=== PATIENT | male | born 1950 | race Caucasian/White ===

== ENCOUNTER → 2017-12-16 | Outpatient (CLI) | payer MEDICARE, OTHER ==
[~2017-12-16] MED LIST: BUTALB-APAP-CA1 EACH PO; NORCO 10-325 T1 EACH PO; PERCOCET 10-321 EACH PO; TRAZODONE HCL100 MG PO
== END ==
LOC: M.ULTRA 09:04
DX: N43.2 Other hydrocele (principal); N50.89 Other specified disorders of the male genital organs

== ENCOUNTER → 2018-05-28 | Outpatient (CLI) | payer MEDICARE, OTHER | LOC: M.LAB 05-26 10:00 | PROVIDERS: General Practice | DX: I70.0 Atherosclerosis of aorta (principal); I70.8 Atherosclerosis of other arteries; K57.90 Diverticulosis of intestine, part unspecified, without perforation or abscess without bleeding; M43.8X6 Other specified deforming dorsopathies, lumbar region ==

== ENCOUNTER → 2018-06-23 | Outpatient (CLI) | payer MEDICARE, OTHER | LOC: M.NUC 06-21 13:03 | DX: K31.84 Gastroparesis (principal); R10.13 Epigastric pain; R63.4 Abnormal weight loss ==

== ENCOUNTER → 2018-06-24 | Outpatient (CLI) | payer MEDICARE, OTHER | LOC: M.CT 08:51 | DX: I70.0 Atherosclerosis of aorta (principal); I77.819 Aortic ectasia, unspecified site; K55.059 Acute (reversible) ischemia of intestine, part and extent unspecified; R93.3 Abnormal findings on diagnostic imaging of other parts of digestive tract; R19.04 Left lower quadrant abdominal swelling, mass and lump; R10.13 Epigastric pain; R63.4 Abnormal weight loss; G43.909 Migraine, unspecified, not intractable, without status migrainosus ==

== ENCOUNTER → 2020-07-06 | Outpatient (CLI) | payer MEDICARE, OTHER | LOC: M.RAD 07:54 | PROVIDERS: ATTEND Family Medicine | DX: M47.816 Spondylosis without myelopathy or radiculopathy, lumbar region (principal); M41.56 Other secondary scoliosis, lumbar region; M25.551 Pain in right hip; M54.5 Low back pain ==

== ENCOUNTER → 2020-12-06 | Outpatient (CLI) | payer MEDICARE, OTHER | LOC: M.RAD 11:19 | PROVIDERS: ATTEND Orthopaedic Surgery | DX: M19.011 Primary osteoarthritis, right shoulder (principal) ==

== ENCOUNTER → 2021-01-04 | Outpatient (CLI) | payer MEDICARE, OTHER | LOC: M.RAD 12:05 → M.LAB 12:05 | PROVIDERS: ATTEND Orthopaedic Surgery | DX: M19.031 Primary osteoarthritis, right wrist (principal) ==

== ENCOUNTER → 2021-01-22 | Outpatient (CLI) | payer MEDICARE, OTHER ==
[~2021-01-22] MED LIST changes: +IMITREX100 MG PO; +SIMVASTATIN40 MG PO
[2021-01-22 08:38] LABS: ABSOLUTE EOSINOPHILS 0.1 thou/uL (0.0-0.7); ABSOLUTE LYMPHOCYTES 1.7 thou/uL (0.8-5.3); ABSOLUTE MONOCYTES 0.4 thou/uL (0.0-1.2); ABSOLUTE NEUTROPHILS 3.3 thou/uL (1.6-8.1); BASOPHILS 0.9 %; EOSINOPHILS 2.3 %; HEMATOCRIT 41.5 % (42.0-52.0); HEMOGLOBIN 13.7 gm/dL (14.0-18.0); LYMPHOCYTES 30.4 %; MCH 30.9 pg (26.0-34.0); MCV 93.5 fL (80.0-100.0); MONOCYTES 7.7 %; MPV 6.3 fl. (7.2-11.1); NUCLEATED RBCS 0 /100WBC; PLATELET COUNT* 273 thou/uL (150-400); POLYS 58.7 %; RBC 4.44 mil/uL (4.50-6.00); RDW-CV 13.8 % (10.5-14.5); WBC 5.6 thou/uL (4.0-11.0)
[2021-01-22 08:39] LABS: URINE BILIRUBIN NEGATIVE (Negative); URINE BLOOD NEGATIVE (Negative); URINE CLARITY CLEAR; URINE COLOR YELLOW; URINE GLUCOSE-RANDOM NEGATIVE (Negative); URINE KETONES TRACE (Negative); URINE LEUKOCYTES-REFLEX NEGATIVE (Negative); URINE NITRITE-REFLEX NEGATIVE (Negative); URINE PROTEIN NEGATIVE (Negative); URINE SPECIFIC GRAVITY 1.025 (1.005-1.030); URINE UROBILINOGEN 0.2 E.U./dl (0.2-1.0)
[2021-01-22 08:53] LABS: PROTIME 10.4 Seconds (9.20-11.50)
[2021-01-22 08:55] LABS: ALBUMIN 3.6 g/dL (3.4-5.0); CALCIUM 9.1 mg/dL (8.5-10.1); CREATININE 1.1 mg/dL (0.6-1.3); POTASSIUM 3.6 mmol/L (3.5-5.1); TOTAL BILIRUBIN 0.2 mg/dL (<0.1-1.0); TOTAL PROTEIN 7.1 g/dL (6.4-8.2)
--- NOTE | 2021-01-22 12:24 | EKG ---
[place] [address] ELECTROCARDIOGRAM REPORT Name: RAUDELDIANA ARANDA Juan Francisco Room: 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: : 1950 Requested By: Lambert Fishman Order Number: [id number] Jenna MD: Kip Bucio Measurements Intervals [place] Rate: 73 P: 76 [place]: 140 QRS: 79 QRSD: 88 T: 78 QT: 368 QTc: 406 Interpretive Statements Sinus rhythm ST elevation, consider early repolarization compared to ECG 12/04/2014 21:11:13 Early repolarization now present Electronically Signed On 01-22-2021 12:24:32 CDT by Kip Bucio [email or web address] <ELECTRONICALLY SIGNED> By: Kip Bucio MD, [facility] 01/22/21 1224 0855 0855 Kip Bucio MD, [facility] /EPI
== END ==
LOC: M.LAB 08:23
PROVIDERS: ATTEND Orthopaedic Surgery
DX: Z01.818 Encounter for other preprocedural examination (principal); M19.011 Primary osteoarthritis, right shoulder; I49.9 Cardiac arrhythmia, unspecified

== ENCOUNTER 2021-01-29 07:00 | Inpatient (IN) | payer MEDICARE, OTHER ==
[~2021-01-29] VITALS: Ht 177.8 cm; Wt 68.0 kg
--- NOTE | ~2021-01-29 | OP ---
[facility] [address] [place] [address] OPERATIVE REPORT Name: DIANA STARKS Room: [address] IN M.R.#: [id number] Admission: 01/29/21 Attend Phys: Evangelist Vale Discharge: Date of : 54 Report #: [id number] THIS REPORT FOR: cc: Jaren Banuelos Russell J. DO ~ Lambert Fishman II, DO DATE OF SERVICE: 01/29/2021 PREOPERATIVE DIAGNOSES: Right shoulder end-stage rotator cuff tear with osteoarthritis of glenohumeral joint. POSTOPERATIVE DIAGNOSES: Right shoulder end-stage rotator cuff tear with osteoarthritis of glenohumeral joint. PROCEDURE: Right reverse total shoulder arthroplasty. SURGEON: Lambert Fishman II, DO CONFIGURATION DEVELOPER: SHEY Danielle. ANESTHESIA: Per operative record. ESTIMATED BLOOD LOSS: 50 mL. ANTIBIOTICS: Per operative record. DRAINS: None. COMPLICATIONS: None. CONDITION OF THE PATIENT: Stable to recovery room. BRIEF HISTORY: The patient was seen in the preoperative area. Preoperative H and P was performed. Site was marked, questions were answered. Risks and benefits were discussed with the patient in detail about the surgery. The patient wished to proceed, assuming all risks. DESCRIPTION OF PROCEDURE: The patient was taken to the operative suite and placed supine on the operative table, given appropriate anesthesia. The patient was then placed in modified beach chair position. All bony prominences were well padded and the right shoulder was sterilely prepped and draped. Surgery began by an anterior deltopectoral incision. This was carried down to the subcutaneous tissues. The deltoid was retracted laterally with the cephalic vein. The subscapularis was then reflected off of the humerus and the head of the humerus was then dislocated anteriorly out of the incision. Intramedullary [facility] [address] [place] [address] OPERATIVE REPORT Name: DIANA STARKS Room: [address] IN [facility].#: [id number] Admission: 01/29/21 Attend Phys: Evangelist Vale Discharge: Date of : 54 Report #: [id number] guide was then utilized through the proximal aspect of the humerus, it was then reamed in sequential fashion up to appropriate size, which was left in place. The intramedullary cutting guide was then aligned utilizing the alignment georgina and pinned in appropriate position. This was then cut in appropriate fashion and the proximal head was removed. The alignment guide was then withdrawn and broached. This was then broached in sequential fashion up to appropriate size, which was left in place and the protective hubcap was then placed over the top. The humerus was once again reduced back into the socket and retracted out of the way to assess the glenoid. Excess labrum was removed from around the glenoid. The inferior portion was found, the appropriate alignment guide was then placed with the guide pin in the inferior central area in an appropriate fashion. This was then reamed to allow for punctate bleeding throughout the glenoid. The glenoid base plate was then attached with a central cancellous screw and tensioned and tied into place. The remaining screws through the glenoid baseplate were then drilled and measured and applied in the appropriate fashion. The appropriate eccentric glenosphere was then utilized and was malleted into position. Attention was then turned back to the humerus. This was trialed with appropriate spacer showing excellent fit and fill with full range of motion of the shoulder. This spacer was then selected along at the final implants and malleted into position on the back table. It was then inserted in a monoblock configuration in appropriate fashion and pounded into position. Shoulder once again reduced, taken through range of motion, showing excellent fit and fill and excellent stability of the shoulder through all range of motion without evidence of dislocation. Final irrigation was performed. The subscapularis was then reattached to the proximal humerus. The deltopectoral incision was then loosely closed with a 1 Vicryl in running fashion and skin was closed with 2-0 Vicryl and running Monocryl stitch. Dermabond, sterile dressing and UltraSling was applied. The patient was transported to recovery room in stable condition. Counts were correct throughout the procedure. By: 2230 [id number] Fishman II, DO /nt
[2021-01-29 07:30] VITALS: BP 141/92
[2021-01-29 12:23] VITALS: BP 131/59
--- NOTE | 2021-01-29 12:31 | NUR ---
PT ADMITTED POST OP SHOULDER REPLACEMENT. PT ALERT AND ORIENTED. FAMILY AT BEDSIDE. PT DENIES ANY PAIN AT THIS TIME. PT ORIENTED TO ROOM AND FALL RISK PRECAUTIONS. PT EDUCATED ON USING CALL LIGHT WHEN NEEDING ASSISTANCE. DIETARY CALLED FOR TRAY.
--- NOTE | 2021-01-29 16:07 | NUR ---
PT REMAINED ALERT AND ORIENTED. PT RESTING IN BED. PT DENIES ANY PAIN AT THIS TIME. PT EDUCATED ON USING CALL LIGHT WHEN NEEDING PAIN MEDS AND IMPORTANCE OF STAYING ON TOP OF PAIN MEDS. AT BEDSIDE. CALL LIGHT IN REACH. FALL RISK PRECAUTIONS IN PLACE. HOURLY ROUNDING COMPLETED.
[2021-01-29 17:55] VITALS: BP 96/48
[2021-01-29 18:42] VITALS: BP 96/48
[2021-01-29 19:43] VITALS: BP 106/51
[2021-01-30] VITALS (8 sets, daily range): BP systolic 96–138; BP diastolic 48–69
--- NOTE | 2021-01-30 04:48 | NUR ---
PT A&OX4, VSS ON ROOM AIR, IV FLUIDS INFUSING ORDERED, PT UP WITH SBA, WEIGHT BEARING LIMITATIONS MAINTAINED, IMOBILIZER ON RT ARM. PAIN CONTROL HAS BEEN CHALLENGING: OXY IR, PERCOCET, NORCO NOT EFFECTIVE. MORPINE GIVEN ORDERED. WILL CONTINUE TO MONITOR.
--- NOTE | 2021-01-30 09:15 | NUR ---
SPOKE WITH PT.AND IN ROOM. HE SAID HE WAS HURTING BUT COULDN'T REMEMBER WHEN HE HAD PAIN MEDICATION. TOLD HIM HE COULD ASK FOR IT BUT IF IT WERE TOO EARLY THEY WOULD LET HIM KNOW WHEN HE HAD IT LAST. DID NOT LOOK COMFORTABLE. OFFERED ICE PACK FOR SHOULDER BUT HE WAS AFRAID IT WOULD BE TOO HEAVY ON SHOULDER. PTS. WILL BE WITH HIM AT HOME. HE IS AGREEABLE TO HOME HEALTH WITH [facility] IF ORDERED. CM WILL CHECK COPAY ON [facility]. PT.SAID HE USES [employer]. HE WILL WANT TO SEE HOW HE FEELS PAIN ROMO LATER AND POSSIBLY GO HOME.
[2021-01-30] MEDS ORDERED: XARELTO10 MG PO (09:41)
[2021-01-30] MEDS ORDERED: ASPIRIN325 PO (12:18)
--- NOTE | 2021-01-30 14:59 | NUR ---
PT.NOT DISCHARGEING TODAY,PER RAMAKRISHNA SCHROEDER. FAXED REFERRAL TO [facility] FOR PT/OT PER . WILL FAX DISCHARGE ORDERS TOMORROW ,WHEN DISCHARGED. [facility]-[phone]/ [phone]-[phone].
--- NOTE | 2021-01-30 17:04 | NUR ---
PT REMAINED ALERT AND ORIENTED. PAIN MEDS GIVEN ORDERED. PT STATES PAIN HAS BEEN MAINTAINED AT A 7. FAMILY AT BEDSIDE. FALL RISK PRECAUTIONS IN PLACE. HOURLY ROUNDING COMPLETED. CALL LIGHT WITHIN REACH.
--- NOTE | 2021-01-31 04:04 | NUR ---
PT A&OX4, VSS ON ROOM AIR, IV SALINE LOCKED, PT UP WITH SBA, ORAL PAIN MEDS REQUESTED AND GIVEN ORDERED, WEIGHT BEARING LIMITATION MAINTAINED TO RUE, IMMOBILIZER IN PLACE. PT SLEEPING BETTER TONIGHT THAN LAST NIGHT. WILL CONTINUE TO MONITOR.
[2021-01-31 07:55] VITALS: BP 137/74
[2021-01-31] MEDS ORDERED: TRAMADOL 50 MG50 MG PO (08:23)
[2021-01-31] MEDS ORDERED: LIDOPATCH1 EACH TOP (08:23)
[2021-01-31] MEDS ORDERED: HYDROCODON-ACE1 EAC7 PO (10:08)
[2021-01-31] MEDS ORDERED: GABAPENTIN 100100 MG PO (10:08)
[2021-01-31 12:00] VITALS: BP 96/48
--- NOTE | 2021-01-31 12:00 | NUR ---
PT.IN BED. AT BEDSIDE. ASKED HIM IF HE WAS GOING HOME TODAY. HE SAID HE REALLLY DIDN'T KNOW WHAT THE PLAN WAS, NO ONE HAD SAID. EXPLAINED DRJuana HAD WRITTEN DISCHARGE ORDERE YESTERDAU. INFORMED IF HE FELT LIKE GOING HOME TODAY, HE COULD. TOLD HIM [facility] WILL BE HIS HH CO.FOR PT/OT. THEY WILL CALL TO SEDT UP APPT. DISCUSSED COST OF XARELTO-[facility]AY $211. HE SAID THAT WAS EXPENSIVE. GAVE HIM ALERTNATIVE OF ASA 325MG DAILY. HE SAID HE WOULD TALK WITH HIS . WANTS TO USE THE BEST ONE FOR HIMSELF. FAXED DISCHARGE ORDERS TO [facility] [phone]. NOTIFIED INTAKE OF DISCHARGE FOR TODAY.
[2021-01-31 14:36] VITALS: BP 96/48
--- NOTE | 2021-01-31 15:10 | NUR ---
PATIENT HAS REMAINED A&OX4, COOPERATIVE WITH CARES THIS SHIFT. PATIENT GIVEN D/C INSTRUCTIONS, PRESCRIPTIONS & INFO SHEETS ON NEW MEDICATIONS. PATIENT GIVEN IS, HE DID NOT HAVE ONE AND THIS NURSE INSTRUCTED ON HOW TO USE; PATIENT VERBALIZED UNDERSTANDING. PATIENT DENIED QUESTIONS/CONCERNS PRIOR TO DISCHARGE. PATIENT LEFT UNIT WITH PERSONAL BELONGINGS VIA W/C ACCOMPANIED BY NURSING STAFF AT APPROX. 1505 TO MEET AT ENTRANCE TO BE TRANSPORTED HOME.
[2021-01-31 15:13] VITALS: BP 96/48
== END 2021-01-31 15:05 | disposition home health service (06) | DRG 483 ==
LOC: M.TBA 07:00 → M.ORTHSURG 07:00 → M.PRE 12:15 → M.ORTHSURG 01-31 15:05
PROVIDERS: ADMIT Internal Medicine; ATTEND Internal Medicine
PROC: 0RRJ00Z Replacement of Right Shoulder Joint with Reverse Ball and Socket Synthetic Substitute, Open Approach (ICD-10-PCS; principal; 2021-01-29)
PROC: 3E0T3BZ Introduction of Anesthetic Agent into Peripheral Nerves and Plexi, Percutaneous Approach (ICD-10-PCS; 2021-01-29)
DX: M19.011 Primary osteoarthritis, right shoulder (principal); S46.011A Strain of muscle(s) and tendon(s) of the rotator cuff of right shoulder, initial encounter; X58.XXXA Exposure to other specified factors, initial encounter; Z79.899 Other long term (current) drug therapy; Y93.89 Activity, other specified; Y92.89 Other specified places as the place of occurrence of the external cause; Y99.8 Other external cause status; Z87.891 Personal history of nicotine dependence; Z28.21 Immunization not carried out because of patient refusal

== ENCOUNTER 2021-05-01 05:34 | Inpatient (IN) | payer MEDICARE, OTHER ==
[~2021-05-01] VITALS: Ht 177.8 cm; Wt 60.8 kg
[~2021-05-01 05:34] MED LIST changes: +ASPIRIN325 PO; +GABAPENTIN 100100 MG PO; +HYDROCODON-ACE1 EAC7 PO; +LIDOPATCH1 EACH TOP; +TRAMADOL 50 MG50 MG PO; +XARELTO10 MG PO
[2021-05-01 05:39] VITALS: BP 160/90
[2021-05-01 06:09] LABS: ABSOLUTE BASOPHILS 0.1 thou/uL (0.0-0.2); ABSOLUTE EOSINOPHILS 0.1 thou/uL (0.0-0.7); ABSOLUTE LYMPHOCYTES 1.3 thou/uL (0.8-5.3); ABSOLUTE MONOCYTES 0.9 thou/uL (0.0-1.2); ABSOLUTE NEUTROPHILS 7.2 thou/uL (1.6-8.1); BASOPHILS 0.8 %; EOSINOPHILS 0.7 %; HEMATOCRIT 38.3 % (42.0-52.0); HEMOGLOBIN 13.1 gm/dL (14.0-18.0); MCH 31.2 pg (26.0-34.0); MCHC 34.1 g/dL (28.0-37.0); MCV 91.5 fL (80.0-100.0); MONOCYTES 9.7 %; MPV 6.3 fl. (7.2-11.1); NUCLEATED RBCS 0 /100WBC; PLATELET COUNT* 264 thou/uL (150-400); POLYS 74.8 %; RBC 4.19 mil/uL (4.50-6.00); RDW-CV 13.8 % (10.5-14.5); WBC 9.6 thou/uL (4.0-11.0)
[2021-05-01 06:18] LABS: CALCIUM 8.9 mg/dL (8.5-10.1); CREATININE 0.9 mg/dL (0.6-1.3); POTASSIUM 4.2 mmol/L (3.5-5.1)
[2021-05-01 06:21] LABS: APTT 25.9 Seconds (25.0-31.3); INR 0.9
[2021-05-01 06:31] LABS: ALBUMIN 3.3 g/dL (3.4-5.0); TOTAL BILIRUBIN 0.2 mg/dL (<0.1-1.0)
[2021-05-01 12:37] VITALS: BP 125/59
--- NOTE | 2021-05-01 13:55 | EKG ---
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 : 1950 Requested By: Becki Gleason Order Number: [id number] MD: Erik Luis Measurements Intervals [place] Rate: 80 P: [place]: QRS: 66 QRSD: 87 T: 68 QT: 408 QTc: 471 Interpretive Statements Sinus rhythm with sinus arrhythmia Ventricular premature complex Baseline wander in lead(s) V3 Compared to ECG 01/22/2021 08:55:31 Ventricular premature complex(es) now present Electronically Signed On 05-01-2021 13:55:12 CDT by Erik Luis [email or web address] <ELECTRONICALLY SIGNED> By: Erik Luis MD, [facility] 05/01/21 1355 0550 0550 Erik Luis MD, [facility] /EPI
--- NOTE | 2021-05-01 13:56 | EKG ---
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 : 1950 Requested By: Sky Perry Order Number: [id number] MD: Erik Luis Measurements Intervals [place] Rate: 82 P: 77 MS: 137 QRS: 60 QRSD: 80 T: 64 QT: 432 QTc: 505 Interpretive Statements Sinus rhythm Multiform ventricular premature complexes Minimal ST elevation, inferior leads Compared to ECG 05/01/2021 05:50:13 PVCs are more frequent Electronically Signed On 05-01-2021 13:55:53 CDT by Erik Luis [email or web address] <ELECTRONICALLY SIGNED> By: Erik Luis MD, [facility] 05/01/21 1355 0556 0556 Erik Luis MD, [facility] /EPI
--- NOTE | 2021-05-01 13:57 | EKG ---
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 : 1950 Requested By: Sky Perry Order Number: [id number] Reading MD: Erik Luis Measurements Intervals [place] Rate: 62 P: 11 MO: 118 QRS: 64 QRSD: 98 T: 61 QT: 407 QTc: 414 Interpretive Statements Sinus rhythm Borderline short MO interval Probable left ventricular hypertrophy Minimal ST elevation, inferior leads Compared to ECG 05/01/2021 05:56:12 Ventricular premature complex(es) no longer present ST (T wave) deviation still present Electronically Signed On 05-01-2021 13:56:55 CDT by Erik Luis [email or web address] <ELECTRONICALLY SIGNED> By: Erik Luis MD, [facility] 05/01/21 1356 2 2 Erik Luis MD, [facility] /EPI
[2021-05-01 15:42] VITALS: BP 125/59
--- NOTE | 2021-05-01 15:48 | 2DMMODE ---
[place] [address] 2 D/M-MODE ECHOCARDIOGRAM Name: DIANA STARKS Room: [address] IN R.#: [id number] Admission: 05/01/21 Attend Phys: Mike Wiseman, Discharge: Date of : 54 Date of Service: 05/01/21 1548 Report #: [id number] THIS REPORT FOR: cc: Jaren Banuelos,Jaren Brewer,Erik Quesada MD [facility] ~ APPROVED REPORT Study performed: 05/01/2021 14:40:03 EXAM: Comprehensive 2D, Doppler, and color-flow Echocardiogram Patient Location: In-Patient Room #: ER Status: routine BSA: 1.79 HR: 75 bpm BP: 125/59 mmHg Rhythm: NSR Other Information Study Quality: Good Indications Pulmonary Embolism 2D Dimensions IVSd: 9.33 (7-11mm) LVOT Diam: 21.55 (18-24mm) LVDd: 45.63 mm PWd: 8.88 (7-11mm) LVDs: 31.87 (25-40mm) Aortic Root: 33.31 mm Volumes Left Atrial Volume (Systole) LA ESV Index: 15.80 mL/m2 Aortic Valve AoV Peak Miguel.: 1.49 m/s AO Peak Gr.: 8.82 mmHg LVOT Max P.50 mmHg AO Mean Gr.: 4.66 mmHg LVOT Mean P.69 mmHg LVOT Max V: 0.94 m/s AO V2 VTI: 30.65 cm LVOT Mean V: 0.59 m/s RYAN (VTI): 2.40 cm2 LVOT V1 VTI: 20.20 [place] [address] 2 D/M-MODE ECHOCARDIOGRAM Name: DIANA STARKS Room: [address] IN .R.#: [id number] Admission: 05/01/21 Attend Phys: Mike Wiseman, Discharge: Date of : 54 Date of Service: 05/01/21 1548 Report #: [id number] Mitral Valve E/A Ratio: 0.89 MV Decel. Time: 240.37 ms MV E Max Miguel.: 0.53 m/s MV PHT: 69.71 ms MVA (PHT): 3.16 cm2 TDI E/Lateral E': 4.42 E/Medial E': 4.82 Medial E' Miguel.: 0.11 m/s Lateral E' Miguel.: 0.12 m/s Pulmonary Valve PV Peak Miguel.: 0.94 m/s PV Peak Gr.: 3.57 mmHg Tricuspid Valve RAP Estimate: 5.00 mmHg TR Peak Gr.: 23.43 mmHg RVSP: 28.00 mmHg PA Pressure: 28.00 mmHg Left Ventricle The left ventricle is normal size. There is normal LV segmental wall motion. There is normal left ventricular wall thickness. Left ventricular systolic function is normal. The left ventricular ejection fraction is within the normal range. LVEF is 55-60%. Grade I - abnormal relaxation pattern. Right Ventricle The right ventricle is normal size. The right ventricular systolic function is normal. Atria The left atrium size is normal. The right atrium size is normal. Aortic Valve The aortic valve is normal in structure. No aortic regurgitation is present. There is no aortic valvular stenosis. Mitral Valve The mitral valve is normal in structure. Mild mitral regurgitation. No evidence of mitral valve stenosis. Tricuspid Valve The tricuspid valve is normal in structure. Trace tricuspid regurgitation. [place] [address] 2 D/M-MODE ECHOCARDIOGRAM Name: DIANA STARKS Room: [address] IN [facility]#: [id number] Admission: 05/01/21 Attend Phys: Mike Wiseman, Discharge: Date of : 54 Date of Service: 05/01/21 1548 Report #: [id number] Pulmonic Valve The pulmonary valve is normal in structure. There is no pulmonic valvular regurgitation. Great Vessels The aortic root is normal in size. IVC is normal in size and collapses >50% with inspiration. Pericardium There is no pericardial effusion. <Conclusion> The left ventricle is normal size. There is normal left ventricular wall thickness. Left ventricular systolic function is normal. The left ventricular ejection fraction is within the normal range. LVEF is 55-60%. Grade I - abnormal relaxation pattern. The right ventricle is normal size. The left atrium size is normal. The right atrium size is normal. The aortic valve is normal in structure. The mitral valve is normal in structure. Mild mitral regurgitation. The tricuspid valve is normal in structure. IVC is normal in size and collapses >50% with inspiration. There is no pericardial effusion. There is normal LV segmental wall motion. <ELECTRONICALLY SIGNED> By: Erik Luis MD, [facility] 05/01/21 1548 1548 1548 Erik Luis MD, [facility] /INF
[2021-05-01 16:00] VITALS: BP 133/55
[2021-05-01 20:00] VITALS: BP 103/55
[2021-05-01 23:47] VITALS: BP 107/53
[2021-05-02 07:54] LABS: ABSOLUTE EOSINOPHILS 0.1 thou/uL (0.0-0.7); ABSOLUTE LYMPHOCYTES 1.2 thou/uL (0.8-5.3); ABSOLUTE MONOCYTES 0.7 thou/uL (0.0-1.2); ABSOLUTE NEUTROPHILS 5.1 thou/uL (1.6-8.1); BASOPHILS 0.7 %; EOSINOPHILS 1.2 %; HEMATOCRIT 36.5 % (42.0-52.0); HEMOGLOBIN 12.5 gm/dL (14.0-18.0); LYMPHOCYTES 16.8 %; MCH 31.2 pg (26.0-34.0); MCHC 34.1 g/dL (28.0-37.0); MCV 91.4 fL (80.0-100.0); MONOCYTES 10.2 %; MPV 6.5 fl. (7.2-11.1); NUCLEATED RBCS 0 /100WBC; PLATELET COUNT* 267 thou/uL (150-400); POLYS 71.1 %; RBC 3.99 mil/uL (4.50-6.00); RDW-CV 13.6 % (10.5-14.5); WBC 7.2 thou/uL (4.0-11.0)
[2021-05-02 08:00] VITALS: BP 133/72
[2021-05-02 09:16] LABS: CALCIUM 8.8 mg/dL (8.5-10.1); CREATININE 0.8 mg/dL (0.6-1.3); POTASSIUM 4.5 mmol/L (3.5-5.1)
[2021-05-02 11:32] VITALS: BP 140/65
--- NOTE | 2021-05-02 15:22 | NUR ---
CM ASSESSMENT: PT A&O, INDEPENDENT WITH ADL'S, ACTIVE AND DRIVES. PT RESIDES AT HOME WITH SPOUSE. PT USES 0 DME. PT HAS 0 HX FO HH OR SNF. PT PLANS TO RETURN HOME AT D/C WITH SELF-CARE. NO CM D/C PLANNING NEEDS ANTICIPATED. CM WILL REMAIN AVAILABLE TO ASSIST AND FOLLOW NEEDED.
[2021-05-02 16:09] VITALS: BP 141/78
--- NOTE | 2021-05-02 19:39 | NUR ---
I ASSUMED CARE OF THE PATIENT AT 0700. HE IS ALERT AND ORIENTED X4 AND IS UP AD DUNIA. IS AT THE BEDSIDE. BED IS IN THE LOW LOCKED POSITION AND CALL LIGHT IS IN REACH. HOURLY ROUNDING IS COMPLETED AND PATIENT NEEDS ARE MET. PAIN IS PARTIALLY MANAGED WITH PRN MEDS. LOTS OF EDUCATION IS COMPLETED ON MEDS, DISEASE PROCESS, TREATMENT, ETC. WILL CONTINUE TO MONITOR.
[2021-05-02 20:00] VITALS: BP 123/58
[2021-05-03] VITALS: BP 141/71
[2021-05-03 04:00] VITALS: BP 134/66
--- NOTE | 2021-05-03 05:38 | NUR ---
PATIENT HAS REMAINED ALERT AND ORIENTED X 4 THROUGHOUT THE SHIFT AND RESTING AT INTERVALS ON HOURLY ROUNDS. UP INDEPENDENTLY IN THE ROOM. HAS DENIED "CHEST PAIN' OR SHORTNESS OF BREATH. CONTINUES TO HAVE LEFT LUNG PAIN. MEDICATED X 3 THIS SHIFT. MEDS PER ORDER. SR ON THE MONITOR. HOPES TO GO HOME TODAY. CONTINUE TO MONITOR.
[2021-05-03] MEDS ORDERED: XARELTO15 MG PO (06:30)
[2021-05-03] MEDS ORDERED: XARELTO20 MG PO (06:31)
[2021-05-03 08:00] VITALS: BP 155/72
--- NOTE | 2021-05-03 10:13 | NUR ---
ASSUMED CARE OF PT AT 0730. PT SITTING AT EDGE OF BED WAITING FOR BREAKFAST. AT BEDSIDE. A&0X4, COMPLAINS OF PAIN TO LEFT CHEST/RIBS-TREATED WITH PRN NORCO WITH PARTIAL RELIEF. TRACING SR ON THE WEB DESIGN INTERN. ON RA SAT UPPER 90'S. DENIES ANY SHORTNESS OF BREATH. PT UP AD DUNIA IN ROOM. PT GOAL FOR TODAY IS INCREASE ACTIVITY, PAIN MGMT AND DISCHARGE PLANNING TO HOME. AM ASSESSMENT CHARTED. MEDICATIONS PER MAR. PT REPOSITIONS SELF. HOURLY ROUNDING OBSERVED. BED IN LOW POSITION. CALL LIGHT WITHIN REACH. WILL CONTINUE PLAN OF CARE.
[2021-05-03 11:12] VITALS: BP 155/72
[2021-05-03 11:30] VITALS: BP 120/60
--- NOTE | 2021-05-03 13:20 | NUR ---
DISCHARGE ORDERS RECEIVED. DISCHARGE INSTRUCTIONS, CARE NOTES, E SCRIPTS AND FOLLOW UP APPTS GIVEN TO PT. PT COMMUNICATES UNDERSTANDING OF DISCHARGE TEACHING. 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 PT DISCHARGED WITH ALL BELONGINGS AND PAPERWORK VIA WHEELCHAIR WITH NURSING STAFF TO SPOUSE OWN PERSONAL VEHICLE.
--- NOTE | 2021-05-03 13:28 | NUR ---
PHYSICIAN INFORMS OF PLAN FOR THE PT TO D/C HOME TODAY WITH SELF-CARE. PT TO D/C WITH [facility]. CM CALLED TO CHECK PT'S CO-PAY AMT WITH HIS PHARMACY [facility]. PT HAS CO-PAY OF $161.72. CM INFORMED PT AND HIS SPOUSE OF THIS INFO AND ALSO PROVIDED 30-DAY FREE CO-PAY CARD. PT AND SPOUSE CONFIRM THAT THE 161.72 IS AFFORDABLE. CM ALSO INFORMED THE PT AND HIS SPOUSE OF THE NEED TO COMPLETE THE [employer] ASSIST CO-PAY ASSISTANCE FORM, THEY MAY QUALIFY FOR A MONTHLY DISCOUNT BASED ON THEIR INCOME. NO OTHER CM D/C PLANNING NEEDS. CM WILL REMAIN AVAILABLE TO ASSIST AND FOLLOW NEEDED.
[2021-05-03 13:30] VITALS: BP 155/72
== END 2021-05-03 13:20 | disposition home or self-care (01) | DRG 175 ==
LOC: M.ERS 05:34 → M.2W 08:33 → M.TBA-ER 08:33 → M.2W 15:27
PROVIDERS: Personal Emergency Response Attendant; ADMIT Internal Medicine; ATTEND Internal Medicine
DX: I26.99 Other pulmonary embolism without acute cor pulmonale (principal); J18.9 Pneumonia, unspecified organism; E44.0 Moderate protein-calorie malnutrition; Z68.1 Body mass index [BMI] 19.9 or less, adult; Z20.822 Contact with and (suspected) exposure to COVID-19; Z96.611 Presence of right artificial shoulder joint; I49.3 Ventricular premature depolarization; R63.4 Abnormal weight loss; G89.29 Other chronic pain; M25.551 Pain in right hip; M19.011 Primary osteoarthritis, right shoulder; Z87.891 Personal history of nicotine dependence; Z79.82 Long term (current) use of aspirin; Z79.899 Other long term (current) drug therapy

== ENCOUNTER 2021-06-09 10:59 | Emergency (ER) | payer MEDICARE, OTHER ==
[~2021-06-09] VITALS: Ht 175.3 cm; Wt 61.2 kg
[~2021-06-09 10:59] MED LIST changes: +XARELTO15 MG PO; +XARELTO20 MG PO
[2021-06-09 12:34] VITALS: BP 163/66
== END 2021-06-09 12:35 | disposition home or self-care (01) ==
LOC: M.ERS 10:59
DX: S46.911A Strain of unspecified muscle, fascia and tendon at shoulder and upper arm level, right arm, initial encounter (principal); Z98.890 Other specified postprocedural states; X58.XXXA Exposure to other specified factors, initial encounter; Y93.89 Activity, other specified; Y92.89 Other specified places as the place of occurrence of the external cause; Y99.8 Other external cause status

== ENCOUNTER → 2021-06-10 | Outpatient (CLI) | payer MEDICARE, OTHER | LOC: M.CT 13:45 | PROVIDERS: ATTEND Orthopaedic Surgery | DX: Z09 Encounter for follow-up examination after completed treatment for conditions other than malignant neoplasm (principal); M19.011 Primary osteoarthritis, right shoulder; M75.41 Impingement syndrome of right shoulder ==

== ENCOUNTER 2021-07-17 19:03 | Emergency (ER) | payer MEDICARE, OTHER ==
[~2021-07-17] VITALS: Ht 175.3 cm; Wt 60.8 kg
[2021-07-17] MEDS ORDERED: PERCOCET 10-321 EAC1 PO (20:54)
[2021-07-17] MEDS ORDERED: FLEXERIL PO (20:55)
[2021-07-17 21:21] VITALS: BP 138/75
== END 2021-07-17 21:23 | disposition home or self-care (01) ==
LOC: M.ERS 19:03
DX: M25.511 Pain in right shoulder (principal); Z98.890 Other specified postprocedural states

== ENCOUNTER → 2021-10-14 | Outpatient (CLI) | payer MEDICARE, OTHER ==
[~2021-10-14] MED LIST changes: +FLEXERIL PO; +PERCOCET 10-321 EAC1 PO
[2021-10-14 09:59] LABS: CREATININE 0.8 mg/dL (0.6-1.3)
== END ==
LOC: M.LAB 09:32 → M.CT 11:00
PROVIDERS: ATTEND Internal Medicine
DX: I25.10 Atherosclerotic heart disease of native coronary artery without angina pectoris (principal); I26.99 Other pulmonary embolism without acute cor pulmonale; Z96.611 Presence of right artificial shoulder joint

== ENCOUNTER → 2021-11-13 | Outpatient (CLI) | payer MEDICARE, OTHER | LOC: M.RAD 15:06 | PROVIDERS: ATTEND Orthopaedic Surgery | DX: S63.651A Sprain of metacarpophalangeal joint of left index finger, initial encounter (principal); M19.042 Primary osteoarthritis, left hand; X58.XXXA Exposure to other specified factors, initial encounter; Y93.89 Activity, other specified; Y92.89 Other specified places as the place of occurrence of the external cause; Y99.8 Other external cause status ==